=== PATIENT | female | born 1980 | race Two or more races ===

== ENCOUNTER → 2020-07-16 | Outpatient (CLI) | payer OTHER ==
[2020-07-16 12:04] LABS: Basophils # (auto) 0.1 10 ^3/uL (0-0.2); Basophils % (auto) 1.3 % (0.0-2.0); Eosinophils # (auto) 0.2 10 ^3/uL (0-0.8); Eosinophils % (auto) 4.9 % (0.0-7.0); Hematocrit 33.7 % (36.0-46.0); Hemoglobin 11.1 g/dL (12.2-16.2); Lymphocytes # (auto) 1.8 10 ^3/uL (0.4-5.4); Lymphocytes % (auto) 37.3 % (10.0-50.0); Mean Corpuscular Hemoglobin 29.4 pg (28.0-32.0); Mean Corpuscular Volume 89.1 fL (80.0-100.0); Monocytes # (auto) 0.5 10 ^3/uL (0-1.3); Monocytes % (auto) 11.3 % (0.0-12.0); Neutrophils # (auto) 2.1 10 ^3/uL (1.6-8.6); Neutrophils % (auto) 45.2 % (37.0-80.0); Nucleated Red Blood Cells % 0.1 %; Platelet Count (auto) 366 10^3/uL (140-450); Red Blood Cells 3.78 10^6/uL (4.0-5.20); Red Cell Distribution Width 15.7 % (11.8-14.3); White Blood Cell 4.7 10^3/uL (4.4-10.8)
[2020-07-16 13:22] LABS: BUN/Creatinine Ratio 6.4; Calcium 9.1 mg/dL (8.5-10.1); Potassium 4.3 mmol/L (3.5-5.1)
[2020-07-16 13:25] LABS: Bilirubin, Total 0.3 mg/dL (0.2-1.0); Total Protein 7.6 g/dL (6.4-8.2)
== END | disposition home or self-care (01) ==
LOC: LAB 11:48
PROVIDERS: ATTEND Psychiatry & Neurology Neurology
DX: R56.9 Unspecified convulsions (principal)
CPT/HCPCS: 36415; 80053; 85025

== ENCOUNTER → 2020-07-16 | Outpatient (CLI) | payer OTHER | END | disposition home or self-care (01) | LOC: XYW 10:44 | PROVIDERS: ATTEND Obstetrics & Gynecology | DX: Z87.898 Personal history of other specified conditions (principal) | CPT/HCPCS: 70553; A9579 ==

== ENCOUNTER 2020-10-11 17:02 | Emergency (ER) | payer OTHER ==
[~2020-10-11] VITALS: Ht 175.3 cm; Wt 89.4 kg
[2020-10-11 17:56] LABS: Basophils # (auto) 0.1 10 ^3/uL (0-0.2); Basophils % (auto) 1.1 % (0.0-2.0); Eosinophils # (auto) 0.2 10 ^3/uL (0-0.8); Eosinophils % (auto) 3.6 % (0.0-7.0); Hematocrit 35.4 % (36.0-46.0); Hemoglobin 11.8 g/dL (12.2-16.2); Lymphocytes # (auto) 2.4 10 ^3/uL (0.4-5.4); Lymphocytes % (auto) 34.4 % (10.0-50.0); Mean Corpuscular Hgb Conc. 33.3 g/dL (32.0-36.0); Mean Corpuscular Volume 90.1 fL (80.0-100.0); Monocytes # (auto) 0.7 10 ^3/uL (0-1.3); Monocytes % (auto) 9.6 % (0.0-12.0); Neutrophils # (auto) 3.6 10 ^3/uL (1.6-8.6); Neutrophils % (auto) 51.3 % (37.0-80.0); Nucleated Red Blood Cells % 0.1 %; Platelet Count (auto) 392 10^3/uL (140-450); Red Blood Cells 3.93 10^6/uL (4.0-5.20); Red Cell Distribution Width 14.6 % (11.8-14.3)
[2020-10-11 18:18] LABS: Albumin 4.1 g/dL (3.4-5.0); Anion Gap 7 (5-15); Blood Urea Nitrogen 5 mg/dL (7-18); Calcium 8.9 mg/dL (8.5-10.1); Carbon Dioxide 23 mmol/L (21-32); Chloride 110 mmol/L (98-107); Glucose 83 mg/dL (74-106); Magnesium 2.4 mg/dL (1.6-2.6); Potassium 3.6 mmol/L (3.5-5.1); Sodium 140 mmol/L (136-145)
[2020-10-11 18:24] LABS: Alanine Aminotransferase 16 U/L (13-56); Alkaline Phosphatase 57 U/L (45-117); Aspartate Aminotransferase 15 U/L (15-37); BUN/Creatinine Ratio 5.1; Bilirubin, Total 0.3 mg/dL (0.2-1.0); GFR African American 80 mL/min; GFR Non-African American 66 mL/min; Total Protein 7.8 g/dL (6.4-8.2)
[2020-10-11 18:42] LABS: Urine Bacteria NONE SEEN /hpf (None Seen); Urine Blood Negative /uL (Negative); Urine WBC 1 /hpf (0 - 5)
[2020-10-11 18:44] LABS: INR 0.97 (0.9-1.15); Partial Thromboplastin Time 24.8 sec (23.0-31.2)
[2020-10-11 21:39] VITALS: BP 112/57
== END 2020-10-11 22:55 | disposition home or self-care (01) ==
LOC: ER 17:02
DX: I47.9 Paroxysmal tachycardia, unspecified (principal); R07.9 Chest pain, unspecified; Z32.02 Encounter for pregnancy test, result negative; Z88.0 Allergy status to penicillin
CPT/HCPCS: 36415; 71045; 80053; 81001; 81025; 83735; 83880; 84443; 84484; 85025; 85379; 85610; 85730; 93005

== ENCOUNTER → 2023-07-14 | Outpatient (CLI) | payer BC | END | disposition home or self-care (01) | LOC: Rad HDHVI 15:58 | PROVIDERS: ATTEND Internal Medicine Cardiovascular Disease | DX: R07.89 Other chest pain (principal); R06.02 Shortness of breath | CPT/HCPCS: 93306 ==

== ENCOUNTER → 2023-07-20 | Outpatient (CLI) | payer BC ==
[~2023-07-20] VITALS: Ht 177.8 cm; Wt 95.3 kg
== END | disposition home or self-care (01) ==
LOC: Rad HDHVI 14:30
PROVIDERS: ATTEND Internal Medicine Cardiovascular Disease
DX: R07.9 Chest pain, unspecified (principal); R06.02 Shortness of breath; R42 Dizziness and giddiness; E78.00 Pure hypercholesterolemia, unspecified; F17.210 Nicotine dependence, cigarettes, uncomplicated; Z82.49 Family history of ischemic heart disease and other diseases of the circulatory system
CPT/HCPCS: 78452; 93017; 96374; A9500

== ENCOUNTER 2023-08-19 07:00 | Day surgery (SDC) | payer BC ==
[2023-08-17 10:50] LABS: Eosinophils # (auto) 0.2 10 ^3/uL (0-0.8); Hemoglobin 11.2 g/dL (12.2-16.2); Monocytes # (auto) 0.5 10 ^3/uL (0-1.3)
[2023-08-17 10:53] LABS: Basophils # (auto) 0.1 10 ^3/uL (0-0.2); Basophils % (auto) 1.2 % (0.0-2.0); Eosinophils % (auto) 3.3 % (0.0-7.0); Lymphocytes # (auto) 2.8 10 ^3/uL (0.4-5.4); Lymphocytes % (auto) 44.8 % (10.0-50.0); Mean Corpuscular Hemoglobin 27.3 pg (28.0-32.0); Mean Corpuscular Volume 85.3 fL (80.0-100.0); Monocytes % (auto) 8.2 % (0.0-12.0); Neutrophils # (auto) 2.7 10 ^3/uL (1.6-8.6); Neutrophils % (auto) 42.5 % (37.0-80.0); Nucleated Red Blood Cells % 0.1 %; Red Cell Distribution Width 16.7 % (11.8-14.3); White Blood Cell 6.3 10^3/uL (4.4-10.8)
[2023-08-17 11:09] LABS: INR 0.97 (0.9-1.15); Partial Thromboplastin Time 28.5 SEC (24.5-34.5); Prothrombin Time 10.2 sec (9.3-11.8)
[2023-08-17 11:28] LABS: Anion Gap 6 (5-15); Carbon Dioxide 25 mmol/L (20-30); Chloride 108 mmol/L (98-107); Potassium 3.9 mmol/L (3.5-5.1); Sodium 139 mmol/L (136-145)
[2023-08-17 11:29] LABS: Calcium 9.7 mg/dL (8.5-10.1)
[2023-08-17 11:34] LABS: Glucose 84 mg/dL (74-106)
[2023-08-17 11:57] LABS: Blood Urea Nitrogen < 5 mg/dL (9-23)
[~2023-08-19] VITALS: Ht 177.8 cm; Wt 96.6 kg
[2023-08-19] VITALS (8 sets, daily range): BP systolic 95–121; BP diastolic 58–73; PULSE 61–76; RESP 12–22; O2SAT 90–100
[~2023-08-19 07:00] MED LIST: CLOP75TA28 PO; GABA400C PO; LAMO150T2 PO; LORA-1121 PO
[2023-08-19] MEDS ORDERED: IODIXANOL 320MG/ML 100ML BTL IV ONE (08:16)
[2023-08-19] MEDS ORDERED: LIDOCAINE 2%HCL (LOCAL ANESTH.) INJ 20ML MDV ONE (08:16)
[2023-08-19] MEDS ORDERED: IOHEXOL 350 MG/ML 100ML IJ ONE ×2 (08:17→09:31)
[2023-08-19] MEDS ORDERED: ANGIOMAX 250 MG VIAL IV ONE (08:34)
[2023-08-19] MEDS ORDERED: fentaNYL CITRATE 100 MCG/2 ML VL ONE (08:34)
[2023-08-19] MEDS ORDERED: SODIUM CHL 0.9% 0 ML ONE (08:34)
[2023-08-19] MEDS ORDERED: HEPARIN SODIUM (PORCINE) 5000 UNITS/ML 1ML VIAL ONE (08:34)
[2023-08-19] MEDS ORDERED: VERAPAMIL 2.5MG/ML INJ 2ML VIAL IV ONE (08:34)
[2023-08-19] MEDS ORDERED: MIDAZOLAM HCL 2MG/2ML 2ml VIAL (1mg/ml) ONE (08:34)
== END 2023-08-19 12:10 | disposition home or self-care (01) ==
LOC: CATH 07:00
PROVIDERS: ATTEND Internal Medicine Cardiovascular Disease
DX: R06.02 Shortness of breath (principal); R94.39 Abnormal result of other cardiovascular function study; I10 Essential (primary) hypertension; Z88.0 Allergy status to penicillin; Z87.891 Personal history of nicotine dependence; Z79.01 Long term (current) use of anticoagulants; Z79.899 Other long term (current) drug therapy; Z98.890 Other specified postprocedural states
CPT/HCPCS: 36415; 80048; 84702; 85025; 85610; 85730; 93458; C1887; C1894; J1644; J2250; J3010; Q9967; 99152

== ENCOUNTER 2024-08-08 14:37 | Inpatient (IN) | payer BC ==
[~2024-08-08] VITALS: Ht 177.8 cm; Wt 105.0 kg
--- NOTE | 2024-08-08 15:29 | ED.PDOC ---
History of Present Illness HPI Comments 43 year old female presents to the ED with a chief complaint of LT sided numbness onset today (08/08/24). Patient states she began experiencing LT sided headache, LT sided facial numbness radiates to LT shoulder and LT arm with a tingling sensation noted as well as palpitations. Upon assessment BS 139, BP 10 4/49. PMHx anxiety, anemia, seizure. Denies chest pain, shortness of breath, blurry vision, nausea, vomiting, diarrhea, abdominal pain, fevers, chills. No other symptoms or modifying factors present at this time. Chief Complaint: Left Sided Weakness Time Seen by MD: 15:08 Primary Care Provider: LOUANN Buchanan Notes: Medications, Allergies Allergies: Coded Allergies: Penicillins (Verified Allergy, Unknown, 10/11/20) Home Meds Reported Medications Lorazepam (ATIVAN TABLET) 0.5 Mg Tb, 1 TAB PO DAILY PRN for ANXIETY 08/17/23 Clopidogrel Bisulfate (Plavix) 75 Mg Tab, 1 TAB PO DAILY, #90 TAB 1 Refill 08/17/23 Gabapentin (Neurontin) 400 Mg Cap, 1 CAP PO BID 08/17/23 Lamotrigine (Lamictal) 150 Mg Tab, 2 TAB PO BID for seizure, #60 TAB 1 Refill 08/17/23 Information Source: Patient Mode of Arrival: Ambulatory Severity: Moderate Timing: Hours Duration: Since onset Prehospital treatment: None Past Medical History PAST MEDICAL HISTORY: Anemia, Anxiety, Seizures Surgical History: Denies all surgeries 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 History Social History Smoker: Non-Smoker Alcohol: Denies ETOH Use Drugs: Denies Drug Use Lives In: Home Constitutional: denies: chills, diaphoresis, fatigue, fever, malaise, sweats, weakness, others EENTM: denies: blurred vision, double vision, ear bleeding, ear discharge, ear drainage, ear pain, ear ringing, eye pain, eye redness, hearing loss, mouth pain, mouth swelling, nasal discharge, nose bleeding, nose congestion, nose pain, photophobia, tearing, throat pain, throat swelling, voice changes, others Respiratory: denies: cough, hemoptysis, orthopnea, SOB at rest, shortness of breath, SOB with excertion, stridor, wheezing, others Cardiovascular: reports: palpitations; denies: chest pain, dizzy spells, diaphoresis, Dyspnea on exertion, edema, irregular heart beat, left arm pain, lightheadedness, PND, syncope, others Gastrointestinal: denies: abdomen distended, abdominal pain, blood streaked bowels, constipated, diarrhea, dysphagia, difficulty swallowing, hematemesis, melena, nausea, poor appetite, poor fluid intake, rectal bleeding, rectal pain, vomiting, others Genitourinary: denies: abnormal vagina bleeding, burning, dyspareunia, dysuria, flank pain, frequency, hematuria, incontinence, pain, , vagina discharge, urgency, others Neurological: reports: headache, left sided numbness; denies: dizziness, fainting, left sided weakness, numbness, paresthesia, pre-existing deficit, right sided numbness, right sided weakness, seizure, speech problems, tingling, tremors, weakness, others Musculoskeletal: reports: others ( LT shoulder pain, LT arm pain); denies: back pain, gout, joint pain, joint swelling, muscle pain, muscle stiffness, neck pain Integumetry: denies: bruises, change in color, change in hair/nails, dryness, laceration, lesions, lumps, rash, wounds, others Allergic/Immunocompromised: denies: Difficulty Healing, Frequent Infections, Hives, Itching, others Hematologic/Lymphatic: denies: anemia, blood clots, easy bleeding, easy bruising, swollen glands, others Endocrine: denies: excessive hunger, excessive sweating, excessive thirst, excessive urination, flushing, intolerance to cold, intolerance to heat, unexplained weight gain, unexplained weight loss, others Psychiatric: denies: anxiety, bipolar disorder, depression, hopeless, panic disorder, schizophrenia, sleepless, suicidal, others All Other Systems: Reviewed and Negative Physical Exam General Appearance: No Apparent Distress, Normal HEENT: Normal ENT Inspection, Pharynx Normal, TMs Normal Neck: Full Range of Motion, Non-Tender, Normal, Normal Inspection Respiratory: Chest Non-Tender, Lungs Clear, No Accessory Muscle Use, No Respiratory Distress, Normal Breath Sounds Cardiovascular: No Edema, No JVD, No Murmur, No Gallop, Normal Peripheral Pulses, Regular Rate/Rhythm Breast Exam: Deferred Gastrointestinal: No Organomegaly, Non Tender, No Pulsatile Mass, Normal Bowel Sounds, Soft Genitalia: Deferred Pelvic: Deferred Rectal: Deferred Extremities: No calf tenderness, Normal capillary refill, Normal inspection, Normal range of motion, Non-tender, No pedal edema Musculoskeletal : Apperance: Normal Neurologic: Alert, 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 Was a procedure done?: No Differential Dx Considerations may include: CVA, ACS, TIA, viral syndrome, atypical migraine, X-Ray, Labs, Meds, VS Vital Signs Date Time Temp Pulse Resp B/P (MAP) Pulse Ox O2 Delivery O2 Flow Rate FiO2 08/08/24 15:32 81 08/08/24 15:16 98.5 81 16 104/49 (67) 99 Lab Test 08/08/24 16:01 08/08/24 15:06 08/08/24 15:02 Range/Units Urine Color Pending Urine Clarity Pending Urine pH Pending Urine Specific [place] Pending Urine Protein Pending Urine Ketones Pending Urine Blood Pending Urine Nitrite Pending Urine Bilirubin Pending Urine Urobilinogen Pending Urine Leukocyte Esterase Pending Urine RBC Pending Urine Microscopic WBC Pending Urine Squamous Epithelial Cells Pending Urine Bacteria Pending Urine Glucose Pending POC Glucose 139 H 70-106 mg/dl White Blood Count 6.1 4.4-10.8 10^3/uL Red Blood Count 4.07 4.0-5.20 10^6/uL Hemoglobin 12.7 12.2-16.2 g/dL Hematocrit 38.9 36.0-46.0 % Mean Corpuscular Volume 95.5 80.0-100.0 fL Mean Corpuscular Hemoglobin 31.1 28.0-32.0 pg Mean Corpuscular Hemoglobin Concent 32.6 32.0-36.0 g/dL Red Cell Distribution Width 14.0 11.8-14.3 % Platelet Count 430 140-450 10^3/uL Mean Platelet Volume 7.1 6.9-10.8 fL Neutrophils (%) (Auto) 65.2 37.0-80.0 % Lymphocytes (%) (Auto) 28.2 10.0-50.0 % Monocytes (%) (Auto) 4.1 0.0-12.0 % Eosinophils (%) (Auto) 2.1 0.0-7.0 % Basophils (%) (Auto) 0.4 0.0-2.0 % Neutrophils # (Auto) 4.0 1.6-8.6 10 ^3/uL Lymphocytes # (Auto) 1.7 0.4-5.4 10 ^3/uL Monocytes # (Auto) 0.3 0-1.3 10 ^3/uL Eosinophils # (Auto) 0.1 0-0.8 10 ^3/uL Basophils # (Auto) 0 0-0.2 10 ^3/uL Nucleated Red Blood Cells 0.2 % Sodium Level 140 136-145 mmol/L Potassium Level 3.7 3.5-5.1 mmol/L Chloride Level 106 98-107 mmol/L Carbon Dioxide Level 25 20-31 mmol/L Anion Gap 9 5-15 Blood Urea Nitrogen < 5 L 9-23 mg/dL Creatinine 0.98 0.550-1.02 mg/dL Glomerular Filtration Rate Calc 73 >90 mL/min BUN/Creatinine Ratio 5.1 L 10.0-20.0 Serum Glucose 132 H 74-106 mg/dL Calcium Level 9.6 8.7-10.4 mg/dL Troponin I High Sensitivity < 3 L </=34 ng/L B-Type Natriuretic Peptide 46.11 0-100 pg/mL [place] [id number] Ph: [phone] DIAGNOSTIC IMAGING Diagnostic Imaging Report : [id number] Signed PATIENT: DAIN CHAVEZCCT: [id number] UNIT: [id number] : 1980 LOC: ER ROOM / BED: / AGE / SEX: 43 / F ADM STATUS: REG ER SERVICE 1510 ORDERING PHYSICIAN: LANIE ESPOSITO MD PROCEDURE(s): HWOCT - HEAD WITHOUT CONTRAST REASON: left sided numbness ORDER NUMBER(s): [id number], ACCESSION NUMBER(s): [id number] EXAM: CT HEAD WITHOUT CONTRAST INDICATION: left sided numbness TECHNIQUE: CT of the head without intravenous contrast. Radiation Dose Information: CT Dose: CTDI volume is 59.08 mGy. Dose-length product is 1045.97 mGy*cm The dose indicators for CT are the volume Computed Tomography (CT) Dose Index (CTDIvol) and the Dose Length Product (DLP), and are measured in units of mGy and mGy-cm, respectively. These indicators are not patient dose, but values generated from the CT scanner acquisition factors. The report includes radiation exposure data for exposures received during this examination. COMPARISON: None FINDINGS: There is no evidence of acute intracranial hemorrhage, extra-axial collection, mass effect, midline shift, herniation or hydrocephalus. The ventricles, sulci and cisterns are age appropriate. The cuellar-white differentiation is intact. Patchy periventricular and subcortical white matter hypoattenuation is nonspecific but may be related to small vessel ischemic disease. The visualized paranasal sinuses and mastoid air cells are clear. The surrounding soft tissues and osseous structures are unremarkable. IMPRESSION: 1. No acute intracranial hemorrhage 2. No CT findings of territorial ischemia. HS:Y ATED BY: GUERITA DE OLIVEIRA Jr., DO DICTATED DATE/TIME: 08/08/24 154 SIGNED BY: GUERITA DE OLIVEIRA Jr., SIGNED DATE/TIME: 08/08/24 154 CC: [place] [id number] Ph: [phone] DIAGNOSTIC IMAGING Diagnostic Imaging Report : [id number] Signed PATIENT: DAIN CHAVEZCCT: [id number] UNIT: [id number] : 1980 LOC: ER ROOM / BED: / AGE / SEX: 43 / F ADM STATUS: REG ER SERVICE 1510 ORDERING PHYSICIAN: LANIE ESPOSITO MD PROCEDURE(s): CXRP - CHEST PORTABLE REASON: left sided numbness ORDER NUMBER(s): [id number], ACCESSION NUMBER(s): [id number] CHEST PORTABLE, HISTORY: left sided numbness COMPARISON: CHEST PORTABLE on DOS: 10/11/20 CHEST PORTABLE on DOS: 10/11/20 TECHNICAL DATA: 1 view of the chest was obtained. FINDINGS: Lines and tubes: None Cardiomediastinal silhouette: normal Pulmonary vasculature: normal Lung expansion: normal Lung airspace: normal Lung interstitium: normal Pleura: normal Pneumothorax: no Bones: Unremarkable Other: no IMPRESSION: No acute intrathoracic abnormality. ATED BY: BEHZAD PATRICK MD DICTATED DATE/TIME: 08/08/241551 SIGNED BY: BEHZAD PATRICK MD SIGNED DATE/TIME: 08/08/241551 CC: Time of 1ST Reevaluation: 15:38 Reevaluation 1ST: Unchanged Patient Education/Counseling: Diagnosis, Treatment, Prognosis Family Education/Counseling: No Family Present Additional Information The following tests were ordered, and results were reviewed by me: BNP, BMP, CBC, TROP -x3, UA, XY CHEST, CT HEAD WITHOUT CONTRAST I reviewed and agreed with the following test results read by other providers: XY CHEST, CT HEAD WITHOUT CONTRAST I discussed treatment and results with medical personnel and: patient Departure 1 Departure Time of Disposition: 16:33 (Patient with left-sided paresthesias. CT scan initially is negative lab work is benign. We will admit patient for further workup and expert neuro consultation.) Impression: Primary Impression: Numbness and tingling of left side of face Additional Impression: Arm paresthesia, left Disposition: 09 ADMITTED INPATIENT Admit to: Med Surg Condition: Serious Critical Care Note Critical Care Time?: Yes Critical care comment: Paresthesias and concern for CVA Authorized and Performed by: Lanie Esposito MD Total critical care time: Approximately 38 minutes Due to a high probability of clinically significant, life threatening deterioration, the patient required my highest level of preparedness to intervene emergently and I personally spent this critical care time directly and personally managing the patient. This critical care time included obtaining a history; examining the patient; pulse oximetry; ordering and review of studies; arranging urgent treatment with development of a management plan; evaluation of patient's response to treatment; frequent reassessment; and, discussions with other providers. This critical care time was performed to assess and manage the high probability of imminent, life-threatening deterioration that could result in multi-organ failure. It was exclusive of separately billable procedures and treating other patients and teaching time. Please see my other sections and the rest of the note for further information on patient assessment and treatment. Stability Stability form required: No I personally scribed for LANIE ESPOSITO MD ([email or web address]) on 08/08/24 at 15:29. Electronically submitted by Ernestina [email or web address]). I personally scribed for [facility] on 08/08/24 at 15:29. Electronically submitted by Ernestina Hebert ([email or web address]). I personally scribed for LANIE ESPOSITO MD ([facility]) on 08/08/24 at 15:33. Electronically submitted by Ernestina Hebert ([email or web address]). I personally scribed for LANIE ESPOSITO MD ([facility]) on 08/08/24 at 15:53. Electronically submitted by Ernestina Hebert ([email or web address]). I personally scribed for LANIE ESP[facility]ITO MD ([facility] on 08/08/24 at 16:20. Electronically submitted by Ernestina Hebert ([email or web address]). LANIE ESPOSITO MD Aug 08, 2024 15:29
[2024-08-08 15:45] LABS: Basophils # (auto) 0 10 ^3/uL (0-0.2); Basophils % (auto) 0.4 % (0.0-2.0); Eosinophils # (auto) 0.1 10 ^3/uL (0-0.8); Eosinophils % (auto) 2.1 % (0.0-7.0); Hematocrit 38.9 % (36.0-46.0); Hemoglobin 12.7 g/dL (12.2-16.2); Lymphocytes # (auto) 1.7 10 ^3/uL (0.4-5.4); Lymphocytes % (auto) 28.2 % (10.0-50.0); Mean Corpuscular Hemoglobin 31.1 pg (28.0-32.0); Mean Corpuscular Hgb Conc. 32.6 g/dL (32.0-36.0); Mean Corpuscular Volume 95.5 fL (80.0-100.0); Monocytes # (auto) 0.3 10 ^3/uL (0-1.3); Monocytes % (auto) 4.1 % (0.0-12.0); Neutrophils % (auto) 65.2 % (37.0-80.0); Nucleated Red Blood Cells % 0.2 %; Platelet Count (auto) 430 10^3/uL (140-450); Red Blood Cells 4.07 10^6/uL (4.0-5.20); White Blood Cell 6.1 10^3/uL (4.4-10.8)
[2024-08-08 15:51] LABS: Chloride 106 mmol/L (98-107); Potassium 3.7 mmol/L (3.5-5.1); Sodium 140 mmol/L (136-145)
--- NOTE | 2024-08-08 15:51 | DVH ---
EXAM: CT HEAD WITHOUT CONTRAST INDICATION: left sided numbness TECHNIQUE: CT of the head without intravenous contrast. Radiation Dose Information: CT Dose: CTDI volume is 59.08 mGy. Dose-length product is 1045.97 mGy*cm The dose indicators for CT are the volume Computed Tomography (CT) Dose Index (CTDIvol) and the Dose Length Product (DLP), and are measured in units of mGy and mGy-cm, respectively. These indicators are not patient dose, but values generated from the CT scanner acquisition factors. The report includes radiation exposure data for exposures received during this examination. COMPARISON: None FINDINGS: There is no evidence of acute intracranial hemorrhage, extra-axial collection, mass effect, midline s hift, herniation or hydrocephalus. The ventricles, sulci and cisterns are age appropriate. The cuellar-white differentiation is intact. Patchy periventricular and subcortical white matter hypoattenuation is nonspecific but may be related to small vessel ischemic disease. The visualized paranasal sinuses and mastoid air cells are clear. The surrounding soft tissues and osseous structures are unremarkable. IMPRESSION: 1. No acute intracranial hemorrhage 2. No CT findings of territorial ischemia. HS:Y
[2024-08-08 15:52] LABS: Anion Gap 9 (5-15); Calcium 9.6 mg/dL (8.7-10.4); Carbon Dioxide 25 mmol/L (20-31)
--- NOTE | 2024-08-08 15:55 | DVH ---
XY CHEST PORTABLE, HISTORY: left sided numbness COMPARISON: CHEST PORTABLE on DOS: 10/11/20 CHEST PORTABLE on DOS: 10/11/20 TECHNICAL DATA: 1 view of the chest was obtained. FINDINGS: Lines and tubes: None Cardiomediastinal silhouette: normal Pulmonary vasculature: normal Lung expansion: normal Lung airspace: normal Lung interstitium: normal Pleura: normal Pneumothorax: no Bones: Unremarkable Other: no IMPRESSION: No acute intrathoracic abnormality.
[2024-08-08 16:07] LABS: BUN/Creatinine Ratio 5.1 (10.0-20.0); Blood Urea Nitrogen < 5 mg/dL (9-23); Glucose 132 mg/dL (74-106)
[2024-08-08 16:10] LABS: Urine Bacteria None Seen /hpf (None Seen)
[2024-08-08 16:26] LABS: Urine Blood Negative /uL (Negative); Urine Clarity Clear (Clear); Urine Color Light-Yellow (Yellow); Urine Protein, UAD Negative (Negative); Urine Specific Gravity 1.006 (1.001-1.035); Urine Squamous Epithelial Cell FEW /hpf (<5); Urine Urobilinogen Normal (Negative); Urine WBC 1 /HPF (0-5)
[2024-08-08] MEDS: GABAPENTIN 400 MG CAP PO SCH (22:00)
[2024-08-08 23:04] LABS: Amphetamine Screen, Urine Neg (NEGATIVE); Barbiturate Scree,Urine Neg (NEGATIVE); Benzodiazephine Screen, Urine Neg (NEGATIVE); Cannabinoid Screen, Urine Neg (NEGATIVE); Cocaine Screen, Urine Neg (NEGATIVE); Opiate Scree,Urine Neg (NEGATIVE); Phencyclidine Screen, Urine Neg (NEGATIVE)
[2024-08-09 00:51] VITALS: BP 132/72; PULSE 81; RESP 18; TEMP 97.7; O2SAT 97
[2024-08-09] MEDS: lamoTRIgine 100 MG TAB PO SCH (01:07)
--- NOTE | 2024-08-09 01:07 | DVHHPRES ---
History of Present Illness Resident Creating Document: UMER DOMINIQUE RESIDENT Reason for Visit: rule out stroke History of Present Illness A 43-year-old female presents to the ED with a chief complaint of left-sided weakness and numbness that began today at approximately 1 PM. She initially experienced left-sided headache and facial numbness, which radiated to the left shoulder and arm with tingling sensations. She continues to experience left- sided numbness and a persistent headache. She denies chest pain, shortness of breath, blurry vision, nausea, vomiting, diarrhea, abdominal pain, fevers, chills, or seizure-like activity. This is the first time she has had these symptoms. Given an ABCD score of 4, she was started on dual antiplatelet therapy (DAPT) with aspirin and clopidogrel. MRI brain and neurology consultation were ordered for further evaluation. Past Medical History Anxiety Seizures Surgical History Denies all surgeries Medications Gabapentin 400 mg capsule PO BID Lamotrigine 150 mg tablet PO BID Allergies Penicillins Social History Smoker: Non-smoker Alcohol: Denies alcohol use Drugs: Denies drug use Lives at home Review of Systems Constitutional: No: Fever, Chills, Sweats, Weakness, Malaise, Other Eyes: No: Pain, Vision change, Conjunctivae inflammation, Eyelid inflammation, Other, Redness ENT: No: Ear pain, Ear discharge, Nose pain, Nose discharge, Nose congestion, Mouth pain, Mouth swelling, Throat pain, Throat swelling, Other Respiratory: No: Cough, Dry, Shortness of breath, SOB with excertion, Wheezing, Hemoptysis, Pleuritic Pain, Sputum, Wheezing, Other Cardiovascular: No: Chest Pain, Palpitations, Orthopnea, Paroxysmal Noc. Dyspnea, Edema, Lt Headedness, Other Gastrointestinal: No: Nausea, Vomiting, Abdominal Pain, Diarrhea, Constipation, Melena, Hematochezia, Other Genitourinary: No Dysuria, No Frequency, No Incontinence, No Hematuria, No Retention, No Other Musculoskeletal: No: other, neck pain, shoulder pain, arm pain, back pain, hand pain, leg pain, foot pain Skin: No: Rash, Lesions, Jaundice, Bruising, Other Neurological: Weakness, Numbness; No: Incoordination, Change in speech, Confusion, Seizures, Other Allergies: Coded Allergies: Penicillins (Verified Allergy, Unknown, 10/11/20) Medications Current Medications Medications Dose Ordered Sig/Jennifer Route Start Time Stop Time Status Last Admin Dose Admin Lamotrigine 150 mg BID PO 08/08/24 22:00 Gabapentin 400 mg BID PO 08/08/24 22:00 Exam Vital Signs Vital Signs Date Time Temp Pulse Resp B/P (MAP) Pulse Ox O2 Delivery O2 Flow Rate FiO2 08/08/24 18:39 97.8 60 18 114/69 (84) 97.8 08/08/24 15:16 99 Exam General: Well-appearing, no acute distress. HEENT: Normocephalic, atraumatic, no signs of trauma. Neck: Supple, no lymphadenopathy. Cardiac: Regular rate and rhythm, no murmurs, rubs, or gallops. Pulmonary: Clear to auscultation bilaterally, no rales, rhonchi, or wheezes. Abdomen: Soft, non-tender, non-distended, normoactive bowel sounds. Extremities: No edema, no deformities. Neurologic: Mental Status: Alert and oriented x3 Cranial Nerves: II-XII intact Motor: 3/5 weakness in the upper left extremity + 5/5 in the other ones Sensory: Mild decreased sensation on the left side Reflexes: 2+ throughout Coordination: Intact Gait: Normal Labs/Xrays Labs Test 08/08/24 17:39 08/08/24 16:01 08/08/24 15:06 08/08/24 15:02 Range/Units Troponin I High Sensitivity < 3 L </=34 ng/L Thyroid Stimulating Hormone (TSH) 0.75 0.55-4.78 uIU/mL Urine Color Light-yellow Yellow Urine Clarity Clear Clear Urine pH 7.0 5.0-9.0 Urine Specific [place] 1.006 1.001-1.035 Urine Protein Negative Negative Urine Ketones Negative Negative Urine Blood Negative Negative /uL Urine Nitrite Negative Negative Urine Bilirubin Negative Negative Urine Urobilinogen Normal Negative mg/dL Urine Leukocyte Esterase Negative Negative /uL Urine RBC <1 0 - 4 /hpf Urine Microscopic WBC 1 0-5 /HPF Urine Squamous Epithelial Cells Few <5 /hpf Urine Bacteria None seen None Seen /hpf Urine Glucose Normal Normal mg/dL Urine Opiates Screen Neg NEGATIVE Urine Fentanyl Screen Neg NEGATIVE Urine Barbiturates Screen Neg NEGATIVE Urine Phencyclidine Screen Neg NEGATIVE Urine Amphetamines Screen Neg NEGATIVE Urine Benzodiazepines Screen Neg NEGATIVE Urine Cocaine Screen Neg NEGATIVE Urine Cannabinoids Screen Neg NEGATIVE POC Glucose 139 H 70-106 mg/dl White Blood Count 6.1 4.4-10.8 10^3/uL Red Blood Count 4.07 4.0-5.20 10^6/uL Hemoglobin 12.7 12.2-16.2 g/dL Hematocrit 38.9 36.0-46.0 % Mean Corpuscular Volume 95.5 80.0-100.0 fL Mean Corpuscular Hemoglobin 31.1 28.0-32.0 pg Mean Corpuscular Hemoglobin Concent 32.6 32.0-36.0 g/dL Red Cell Distribution Width 14.0 11.8-14.3 % Platelet Count 430 140-450 10^3/uL Mean Platelet Volume 7.1 6.9-10.8 fL Neutrophils (%) (Auto) 65.2 37.0-80.0 % Lymphocytes (%) (Auto) 28.2 10.0-50.0 % Monocytes (%) (Auto) 4.1 0.0-12.0 % Eosinophils (%) (Auto) 2.1 0.0-7.0 % Basophils (%) (Auto) 0.4 0.0-2.0 % Neutrophils # (Auto) 4.0 1.6-8.6 10 ^3/uL Lymphocytes # (Auto) 1.7 0.4-5.4 10 ^3/uL Monocytes # (Auto) 0.3 0-1.3 10 ^3/uL Eosinophils # (Auto) 0.1 0-0.8 10 ^3/uL Basophils # (Auto) 0 0-0.2 10 ^3/uL Nucleated Red Blood Cells 0.2 % Sodium Level 140 136-145 mmol/L Potassium Level 3.7 3.5-5.1 mmol/L Chloride Level 106 98-107 mmol/L Carbon Dioxide Level 25 20-31 mmol/L Anion Gap 9 5-15 Blood Urea Nitrogen < 5 L 9-23 mg/dL Creatinine 0.98 0.550-1.02 mg/dL Glomerular Filtration Rate Calc 73 >90 mL/min BUN/Creatinine Ratio 5.1 L 10.0-20.0 Serum Glucose 132 H 74-106 mg/dL Hemoglobin A1c 5.1 <5.7 % A1C Calcium Level 9.6 8.7-10.4 mg/dL B-Type Natriuretic Peptide 46.11 0-100 pg/mL Assessment/Plan Assessment/Plan Imaging CT Head (08/08/24) - No Contrast No evidence of acute intracranial hemorrhage, extra-axial collection, mass effect, midline shift, herniation, or hydrocephalus. Age-appropriate ventricles, sulci, and cisterns. Patchy periventricular and subcortical white matter hypodensities, likely related to small vessel ischemic disease. No CT findings of territorial ischemia. Assessment and Plan 43F with PMHx of anxiety, anemia, and seizures presenting with acute left-sided weakness and numbness, now improving, with persistent headache. Given no acute hemorrhage on CT and an ABCD score of 4, likely transient ischemic attack (TIA). #TIA vs Stroke MRI brain ordered Neurology consult placed Dual antiplatelet therapy started: Aspirin + Clopidogrel # Small Vessel Ischemic Disease Noted on CT; follow-up based on MRI findings # Headache Likely secondary to TIA vs tension-type vs migraines Tylenol #Seizure History No seizure-like activity Continue current antiseizure medications #Hyperlipidemia Atorvastatin 20 mg Case discussed with Dr Worrell Plan discussed with: Patient, Other My Orders Orders - UMER DOMINIQUE RESIDENT Procedure Category Date Status Time Admit ADMIT 08/08/24 Transmitted 21:55 Regular Diet DIET 08/09/24 Transmitted Breakfast Lamotrigine Tablet PHA 08/08/24 In Process (Lamictal Tablet) 22:00 Gabapentin Capsule PHA 08/08/24 In Process (Neurontin Capsule) 22:00 * Neurology Consult CONS 08/08/24 Transmitted 21:55 Lipid Panel LAB 08/08/24 In Process 23:53 Brain Head Wo Contrast MRI 08/09/24 Logged 00:00 Date of Service: Aug 09, 2024 Billing Provider: BRANDY WORRELL MD Common Visit Codes: [id number] INP/OBS CARE (HIGH) UMER DOMINIQUE RESIDENT Aug 09, 2024 01:07 BRANDY WORRELL MD Aug 09, 2024 14:45
[2024-08-09] MEDS: ASPirin 325 MG TAB PO ONE (01:08)
[2024-08-09] MEDS: CLOPIDOGREL BISULFATE 75 MG TAB PO ONE (01:09)
[2024-08-09 01:41] LABS: Triglycerides 119 mg/dL (< 150)
[2024-08-09 01:42] LABS: LDL Cholesterol 137 mg/dL (< 100)
[2024-08-09 01:43] LABS: HDL Cholesterol 53 mg/dL (40-59)
[2024-08-09 01:59] LABS: Cholesterol 201 mg/dL (< 200)
[2024-08-09] MEDS ORDERED: ACETAMINOPHEN 325 MG TAB PO PRN (03:00)
[2024-08-09] MEDS: KETOROLAC TROMETH 30 MG/ML 1ML VIAL IV PRN (06:36)
[2024-08-09 06:57] LABS: Basophils # (auto) 0.1 10 ^3/uL (0-0.2); Eosinophils # (auto) 0.3 10 ^3/uL (0-0.8); Eosinophils % (auto) 3.2 % (0.0-7.0); Hemoglobin 13.6 g/dL (12.2-16.2); Lymphocytes # (auto) 2.8 10 ^3/uL (0.4-5.4); Lymphocytes % (auto) 32.7 % (10.0-50.0); Mean Corpuscular Hemoglobin 31.6 pg (28.0-32.0); Mean Corpuscular Hgb Conc. 33.1 g/dL (32.0-36.0); Mean Corpuscular Volume 95.4 fL (80.0-100.0); Monocytes # (auto) 0.7 10 ^3/uL (0-1.3); Monocytes % (auto) 7.6 % (0.0-12.0); Neutrophils # (auto) 4.7 10 ^3/uL (1.6-8.6); Neutrophils % (auto) 55.5 % (37.0-80.0); Nucleated Red Blood Cells % 0.1 %; Platelet Count (auto) 440 10^3/uL (140-450); Red Blood Cells 4.29 10^6/uL (4.0-5.20); Red Cell Distribution Width 14.6 % (11.8-14.3); White Blood Cell 8.6 10^3/uL (4.4-10.8)
[2024-08-09 07:21] LABS: Alanine Aminotransferase 15 U/L (7-40); Alkaline Phosphatase 62 U/L (46-116); Anion Gap 12 (5-15); Calcium 9.8 mg/dL (8.7-10.4); Carbon Dioxide 23 mmol/L (20-31); Chloride 105 mmol/L (98-107); Potassium 3.9 mmol/L (3.5-5.1); Sodium 140 mmol/L (136-145)
[2024-08-09 07:22] LABS: Aspartate Aminotransferase 20 U/L (13-40); Total Protein 7.7 g/dL (5.7-8.2)
[2024-08-09 07:27] LABS: Albumin 4.9 g/dL (3.2-4.8); BUN/Creatinine Ratio 5.6 (10.0-20.0); Bilirubin, Total 0.2 mg/dL (0.2-1.0); Blood Urea Nitrogen < 5 mg/dL (9-23); Glucose 68 mg/dL (74-106)
--- NOTE | 2024-08-09 08:38 | DVH ---
CLINICAL INDICATION: 43 years old, Female; rule out stroke. Indication for recent CT exam was left-s ided numbness. COMPARISON: BRAIN HEAD WO W CONTRAST on DOS: 07/16/20 TECHNIQUE: Multisequence multiplanar MRI images of the brain were obtained without contrast. FINDINGS: No acute infarct or hemorrhage. No mass or midline shift. Ventricles and sulci are within normal limits. Basal cisterns are patent. There is a partially empty sella. Cerebellum, brainstem, an d midline structures are within normal limits. Paranasal sinuses are clear. In the orbits, there is s light excess CSF fluid in the optic nerve sheaths bilaterally with tortuosity of the optic nerves, ma y be seen with papilledema in the appropriate clinical setting. IMPRESSION: 1. No evidence of acute intracranial abnormality. No acute infarct. 2. Slight excess CSF fluid in the optic nerve sheaths bilaterally with tortuosity of the optic nerves , may be seen with papilledema in the appropriate clinical setting. 3. Partially empty sella.
[2024-08-09 08:55] VITALS: BP 117/68; PULSE 80; RESP 14; TEMP 98.2; O2SAT 97
--- NOTE | 2024-08-09 09:13 | DVH ---
Carotid Duplex Date: 08/09/2024 08:08 AM Clinical History: TIA Comparison: None Technique: Duplex Doppler evaluation of the extracranial carotid and vertebral arteries including color Doppler and spectral/pulsed waveform analysis was performed. Findings: Velocities and ratios within normal IMPRESSION: No hemodynamically significant stenosis noted in the right carotid system. No hemodynamically significant stenosis noted in the left carotid system. Reference: Radiology 2003; 229:340-346
[2024-08-09] MEDS: ASPirin 81 mg TAB PO SCH (09:46)
[2024-08-09] MEDS: CLOPIDOGREL BISULFATE 75 MG TAB PO SCH (09:46)
--- NOTE | 2024-08-09 11:00 | DVHINCON2 ---
Date of service: Aug 09, [address] Aguilar Reason for Consultation Rule out CVA, history of seizures History of Present Illness Ms. Abi Price is a 43 years old right-handed female with a history of anxiety, anemia, she came to the [facility] on 08/08/2024 with a chief company of left side numbness. At that time, she was alert and fully oriented, she provided the following history On 08/08/2024, she developed pressure headache in bifrontal head region, with spread to whole head, the headache was constant but improved in the emergency room after she was given pain management. The patient was has headache once a while, and she was a similar headache about 2-3 years ago, she was seen in the [facility] ER and nothing wrong was found after CT brain scan and other tests Along with the headache, she was also had left facial numbness, tingling in the left neck, shoulder and brachium. All the symptoms have resolved in the emergency room She denies associated weakness She developed grand mal seizure in 2009, and the last attack was around . She reports she had episodic event where she was shaking all over body with loss of consciousness, and complete amnesia except for shortness of breath at the beginning, she was on gabapentin 400 mg b.i.d., lamotrigine 150 mg daily In 2020, she developed episode event where she spaces out but without loss of consciousness, the last event was in 2022 Sometimes she smells unpleasant odor and has unpleasant taste without altered mental status CBC, 08/08/2025: Unremarkable CMP, 08/09/2024: Unremarkable HGB A1c, 08/08/2024: 5.1 TG/HDL/LDL/HDL, 08/08/2024: 119/201/137/53 TSH, 08/08/2024: Carotid Doppler, 08/09/2024: No hemodynamically significant stenosis noted in the right carotid system. No hemodynamically significant stenosis noted in the left carotid system. MR head, 08/09/2024: 1. No evidence of acute intracranial abnormality. No acute infarct. 2. Slight excess CSF fluid in the optic nerve sheaths bilaterally with tortuosity of the optic nerves, may be seen with papilledema in the appropriate clinical setting. 3. Partially empty sella. Past Medical History Anxiety, seizure, anemia Past Surgical History Family History Hypertension, prostatic cancer Social History She was a tobacco smoker, she was no history of alcohol or recreational substance abuse Allergies: Coded Allergies: Penicillins (Verified Allergy, Unknown, 10/11/20) Home Meds Reported Medications Lorazepam (ATIVAN TABLET) 0.5 Mg Tb, 1 TAB PO DAILY PRN for ANXIETY 08/17/23 Clopidogrel Bisulfate (Plavix) 75 Mg Tab, 1 TAB PO DAILY, #90 TAB 1 Refill 08/17/23 Gabapentin (Neurontin) 400 Mg Cap, 1 CAP PO BID 08/17/23 Lamotrigine (Lamictal) 150 Mg Tab, 2 TAB PO BID for seizure, #60 TAB 1 Refill 08/17/23 Current Medications Current Medications Medications (Trade) Dose Ordered Sig/Jennifer Route PRN Reason Start Time Stop Time Status Last Admin Lamotrigine (LaMICtal TABLET) 150 mg BID PO 08/08/24 22:00 08/09/24 01:07 Gabapentin (Neurontin Capsule) 400 mg BID PO 08/08/24 22:00 08/09/24 09:46 Atorvastatin Calcium (Lipitor) 20 mg HS PO 08/09/24 22:00 08/09/24 06:59 DC Aspirin 81 mg DAILY PO 08/09/24 10:00 08/09/24 09:46 Clopidogrel Bisulfate (Plavix) 75 mg DAILY PO 08/09/24 10:00 08/09/24 09:46 Acetaminophen (Tylenol Tablet) 650 mg Q4HP PRN PO MODERATE PAIN (4-6 PAIN SCALE) 08/09/24 03:00 Ketorolac Tromethamine (Toradol Injection) 15 mg Q6HPRN PRN IV MODERATE PAIN (4-6 PAIN SCALE) 08/09/24 06:15 08/14/24 06:14 08/09/24 06:36 Atorvastatin Calcium (Lipitor) 80 mg HS PO 08/09/24 22:00 Review of Systems As above, the other systems are negative Vital Signs Vital Signs Date Time Temp Pulse Resp B/P (MAP) Pulse Ox O2 Delivery O2 Flow Rate FiO2 08/09/24 08:55 98.2 80 14 117/68 (84) 97 98.2 08/09/24 00:51 Room Air* 0 21 Physical Exam GENERAL EXAM: General: the patient is well developed and nourished. No acute distress. HEENT: Normocephalic, neck is supple, no carotid bruits. No mass. RESPIRATORY: Normal respiratory effort with symmetrical lung expansion. Lungs clear to auscultation. CARDIOVASCULAR: Regular rate and rhythm with no murmurs. S1, S2. ABDOMEN: Soft, nontender, normal bowel sound NEUROLOGICAL: MENTAL STATUS: Awake and alert. Oriented to person, place, time and general circumstances. Able to give personal history. SPEECH, LANGUAGE, HIGHER CORTICAL FUNCTION: no aphasia or dysathria. CRANIAL NERVES: #2: Intact visual moore to confrontation. The optic discs were sharp. #3,4,6: Pupils are equal, round and reactive. EOMs full and conjugate. No nystagmus. #5: Facial sensation intact in all three divisions bilaterally. Mandibular strength intact. #7: Facial muscles symmetrical and strength intact. #8: Hearing grossly normal to voice. #9,10: Uvula and soft palate rise in the midline. Swallow and voice are normal. #11: Trapezius and sternomastoid strength intact bilaterally. #12: Tongue midline. No fasciculations or atrophy. SENSATION: Sensation to touch and pinprick is normal. MOTOR: Normal tone in the upper and lower extremity. Normal muscle bulk. No fasciculations. No abnormal movements or posturing. Muscle strength of the major groups in the upper extremities is 5/5. Muscle strength of the major groups in the lower extremities is 5/5. REFLEXES: Deep tendon reflexes normal and symmetrical. No pathological reflexes. CEREBELLAR/COORDINATION: Finger to nose and heel to bello are normal bilaterally. GAIT/STATION: deferred. Labs/Diagnostic Data Labs Test 08/09/24 05:48 08/08/24 17:39 08/08/24 16:01 08/08/24 15:06 Range/Units White Blood Count 8.6 # 4.4-10.8 10^3/uL Red Blood Count 4.29 4.0-5.20 10^6/uL Hemoglobin 13.6 12.2-16.2 g/dL Hematocrit 41.0 36.0-46.0 % Mean Corpuscular Volume 95.4 80.0-100.0 fL Mean Corpuscular Hemoglobin 31.6 28.0-32.0 pg Mean Corpuscular Hemoglobin Concent 33.1 32.0-36.0 g/dL Red Cell Distribution Width 14.6 H 11.8-14.3 % Platelet Count 440 140-450 10^3/uL Mean Platelet Volume 7.4 6.9-10.8 fL Neutrophils (%) (Auto) 55.5 37.0-80.0 % Lymphocytes (%) (Auto) 32.7 10.0-50.0 % Monocytes (%) (Auto) 7.6 0.0-12.0 % Eosinophils (%) (Auto) 3.2 0.0-7.0 % Basophils (%) (Auto) 1.0 0.0-2.0 % Neutrophils # (Auto) 4.7 1.6-8.6 10 ^3/uL Lymphocytes # (Auto) 2.8 0.4-5.4 10 ^3/uL Monocytes # (Auto) 0.7 0-1.3 10 ^3/uL Eosinophils # (Auto) 0.3 0-0.8 10 ^3/uL Basophils # (Auto) 0.1 0-0.2 10 ^3/uL Nucleated Red Blood Cells 0.1 % Sodium Level 140 136-145 mmol/L Potassium Level 3.9 3.5-5.1 mmol/L Chloride Level 105 98-107 mmol/L Carbon Dioxide Level 23 20-31 mmol/L Anion Gap 12 5-15 Blood Urea Nitrogen < 5 L 9-23 mg/dL Creatinine 0.90 0.550-1.02 mg/dL Glomerular Filtration Rate Calc 80 >90 mL/min BUN/Creatinine Ratio 5.6 L 10.0-20.0 Serum Glucose 68 L 74-106 mg/dL Calcium Level 9.8 8.7-10.4 mg/dL Total Bilirubin 0.2 0.2-1.0 mg/dL Aspartate Amino Transferase (AST) 20 13-40 U/L Alanine Aminotransferase (ALT) 15 7-40 U/L Alkaline Phosphatase 62 46-116 U/L Total Protein 7.7 5.7-8.2 g/dL Albumin 4.9 H 3.2-4.8 g/dL Troponin I High Sensitivity < 3 L </=34 ng/L Triglycerides Level 119 < 150 mg/dL Cholesterol Level 201 H < 200 mg/dL LDL Cholesterol 137 H < 100 mg/dL HDL Cholesterol 53 40-59 mg/dL Thyroid Stimulating Hormone (TSH) 0.75 0.55-4.78 uIU/mL Urine Color Light-yellow Yellow Urine Clarity Clear Clear Urine pH 7.0 5.0-9.0 Urine Specific [place] 1.006 1.001-1.035 Urine Protein Negative Negative Urine Ketones Negative Negative Urine Blood Negative Negative /uL Urine Nitrite Negative Negative Urine Bilirubin Negative Negative Urine Urobilinogen Normal Negative mg/dL Urine Leukocyte Esterase Negative Negative /uL Urine RBC <1 0 - 4 /hpf Urine Microscopic WBC 1 0-5 /HPF Urine Squamous Epithelial Cells Few <5 /hpf Urine Bacteria None seen None Seen /hpf Urine Glucose Normal Normal mg/dL Urine Opiates Screen Neg NEGATIVE Urine Fentanyl Screen Neg NEGATIVE Urine Barbiturates Screen Neg NEGATIVE Urine Phencyclidine Screen Neg NEGATIVE Urine Amphetamines Screen Neg NEGATIVE Urine Benzodiazepines Screen Neg NEGATIVE Urine Cocaine Screen Neg NEGATIVE Urine Cannabinoids Screen Neg NEGATIVE POC Glucose 139 H 70-106 mg/dl Test 08/08/24 15:02 Range/Units Hemoglobin A1c 5.1 <5.7 % A1C B-Type Natriuretic Peptide 46.11 0-100 pg/mL Assessment Headache, left facial, neck, shoulder and brachium paresthesia with unremarkable MRI. The clinical presentation is not typical to TIA/stroke Reports seizure symptoms, consistent with grand mal seizure and simple partial seizure Plan/Recommendation Monitoring Supportive treatment Telemetry Clopidogrel 75 mg daily (home medication) Gabapentin 400 mg b.i.d. Lamictal 150 mg b.i.d. Resume her home medication on discharge More recommendation per clinical course Follow up with her doctors on discharge This medical document was created using an electronic medical record system with [employer] dictation system. Although this document has been carefully reviewed, there may still be some phonetic and typographical errors. These areas are purely typographical due to imperfections of the software programs, and do not reflect any compromise in the patient's medical care. Plan discussed with: Patient, Other SHAYNE LYONS MD Aug 09, 2024 11:00
--- NOTE | 2024-08-09 12:59 | ECG ---
[facility] Test Date: 2024-08-08 Test Time: 15:13:12 Pat Name: ANUM FERNANDEZ Department: ER Room: [address] [place] [address] A Gender: F Sql Manager: ER : 1980 Requested By: LANIE ESPOSITO Order Number: [id number] Reading MD: Measurements Intervals [place] Rate: 81 P: 74 NE: 173 QRS: 34 QRSD: 123 T: -50 QT: 389 QTc: 452 Interpretive Statements Sinus rhythm Consider right atrial enlargement Left bundle branch block Please click the below link to view image of tracing.
--- NOTE | 2024-08-09 19:51 | DVHDSRES ---
Discharge Summary Date of Admission Resident Creating Document: UMER DOMINIQUE RESIDENT Aug 08, 2024 at 21:55 Date of Discharge: Aug 09, 2024 Admitting Diagnosis Left-sided weakness Labs/Diagnostic Data: Laboratory Results Test 08/09/24 05:48 08/08/24 17:39 08/08/24 16:01 08/08/24 15:06 White Blood Count 8.6 10^3/uL (4.4-10.8) Red Blood Count 4.29 10^6/uL (4.0-5.20) Hemoglobin 13.6 g/dL (12.2-16.2) Hematocrit 41.0 % (36.0-46.0) Mean Corpuscular Volume 95.4 fL (80.0-100.0) Mean Corpuscular Hemoglobin 31.6 pg (28.0-32.0) Mean Corpuscular Hemoglobin Concent 33.1 g/dL (32.0-36.0) Red Cell Distribution Width 14.6 % (11.8-14.3) Platelet Count 440 10^3/uL (140-450) Mean Platelet Volume 7.4 fL (6.9-10.8) Neutrophils (%) (Auto) 55.5 % (37.0-80.0) Lymphocytes (%) (Auto) 32.7 % (10.0-50.0) Monocytes (%) (Auto) 7.6 % (0.0-12.0) Eosinophils (%) (Auto) 3.2 % (0.0-7.0) Basophils (%) (Auto) 1.0 % (0.0-2.0) Neutrophils # (Auto) 4.7 10 ^3/uL (1.6-8.6) Lymphocytes # (Auto) 2.8 10 ^3/uL (0.4-5.4) Monocytes # (Auto) 0.7 10 ^3/uL (0-1.3) Eosinophils # (Auto) 0.3 10 ^3/uL (0-0.8) Basophils # (Auto) 0.1 10 ^3/uL (0-0.2) Nucleated Red Blood Cells 0.1 % Sodium Level 140 mmol/L (136-145) Potassium Level 3.9 mmol/L (3.5-5.1) Chloride Level 105 mmol/L (98-107) Carbon Dioxide Level 23 mmol/L (20-31) Anion Gap 12 (5-15) Blood Urea Nitrogen < 5 mg/dL (9-23) Creatinine 0.90 mg/dL (0.550-1.02) Glomerular Filtration Rate Calc 80 mL/min (>90) BUN/Creatinine Ratio 5.6 (10.0-20.0) Serum Glucose 68 mg/dL (74-106) Calcium Level 9.8 mg/dL (8.7-10.4) Total Bilirubin 0.2 mg/dL (0.2-1.0) Aspartate Amino Transferase (AST) 20 U/L (13-40) Alanine Aminotransferase (ALT) 15 U/L (7-40) Alkaline Phosphatase 62 U/L (46-116) Total Protein 7.7 g/dL (5.7-8.2) Albumin 4.9 g/dL (3.2-4.8) Troponin I High Sensitivity < 3 ng/L (</=34) Triglycerides Level 119 mg/dL (< 150) Cholesterol Level 201 mg/dL (< 200) LDL Cholesterol 137 mg/dL (< 100) HDL Cholesterol 53 mg/dL (40-59) Thyroid Stimulating Hormone (TSH) 0.75 uIU/mL (0.55-4.78) Urine Color Light-yellow (Yellow) Urine Clarity Clear (Clear) Urine pH 7.0 (5.0-9.0) Urine Specific [place] 1.006 (1.001-1.035) Urine Protein Negative (Negative) Urine Ketones Negative (Negative) Urine Blood Negative /uL (Negative) Urine Nitrite Negative (Negative) Urine Bilirubin Negative (Negative) Urine Urobilinogen Normal mg/dL (Negative) Urine Leukocyte Esterase Negative /uL (Negative) Urine RBC <1 /hpf (0 - 4) Urine Microscopic WBC 1 /HPF (0-5) Urine Squamous Epithelial Cells Few /hpf (<5) Urine Bacteria None seen /hpf (None Seen) Urine Glucose Normal mg/dL (Normal) Urine Opiates Screen Neg (NEGATIVE) Urine Fentanyl Screen Neg (NEGATIVE) Urine Barbiturates Screen Neg (NEGATIVE) Urine Phencyclidine Screen Neg (NEGATIVE) Urine Amphetamines Screen Neg (NEGATIVE) Urine Benzodiazepines Screen Neg (NEGATIVE) Urine Cocaine Screen Neg (NEGATIVE) Urine Cannabinoids Screen Neg (NEGATIVE) POC Glucose 139 mg/dl (70-106) Test 2/25/25 15:02 Hemoglobin A1c 5.1 % A1C (<5.7) B-Type Natriuretic Peptide 46.11 pg/mL (0-100) Other Laboratory Tests 08/09/24 05:48 Brief Hx & Hospital Course: A 43-year-old female presents to the ED with a chief complaint of left-sided weakness and numbness that began today at approximately 1 PM. She initially experienced left-sided headache and facial numbness, which radiated to the left shoulder and arm with tingling sensations. She continues to experience left- sided numbness and a persistent headache. She denies chest pain, shortness of breath, blurry vision, nausea, vomiting, diarrhea, abdominal pain, fevers, chills, or seizure-like activity. This is the first time she has had these symptoms. Given an ABCD score of 4, she was started on dual antiplatelet therapy (DAPT) with aspirin and clopidogrel. MRI brain and neurology consultation were ordered for further evaluation. Hospital course: CT head showed no evidence of acute intracranial hemorrhage, extra-axial collection, mass effect, midline shift, herniation or hydrocephalus. Patchy periventricular and subcortical white matter hypodensities likely related to small-vessel ischemic disease, no CT findings of territorial ischemia. Neurology was taken on board, brain MRI showed no evidence of acute intracranial abnormality, no acute infarct. Slight excess CSF fluid in the optic nerve sheaths bilaterally with tortuosity of the optic nerves, may be seen with papilledema in the appropriate clinical setting. Partially empty sella. Carotid Doppler showed no hemodynamically significant stenosis noted in the right and left carotid system. Patient's pattern and distribution of paresthesias with unremarkable MRI is not typical to TIA/stroke. On the day of discharge, patient appeared well and had stable vital signs, full neurological exam was conducted for the patient which was largely unremarkable, patient denied any active ongoing headaches or numbness or paresthesias. Patient was discharged home and instructed to continue home medication clopidogrel and atorvastatin, patient was also instructed to follow up with her neurologist at [place] in 1-2 weeks. Her hospital course was uncomplicated. General Appearance: Cooperative. Well developed. Well nourished. NAD Head Exam: Normal inspection Neck Exam: Normal inspection. Non-tender. Normal alignment Pulmonary/Respiratory: Chest non-tender. Clear bilateral breath sounds, no crackles, no wheezing. Cardiovascular/Chest: Regular rate and rhythm. No murmurs. No JVD. Peripheral Pulses: 2+ Radial (R). 2+ Radial (L). 2+ Pedal (R). 2+ Pedal (L) Abdominal Exam: Normal bowel sounds. Soft. normal abdomen, no visible veins, Nontender. No hepatospenomegaly. No masses Ankle Exam: Negative ankle edema Lower extremities: Negative lower extremity edema Neuro/Mental Status: A&O x4. Coherent. Thoughts/Psych: Normal thought pattern. Appropriate mood and affect. Good judgement and insight Skin Exam: Normal inspection. Normal color. Warm. Dry Consults/Reason for consult Neurology: Ruled out stroke/TIA Condition at Discharge: Good Final Diagnosis/Problems List Ruled out stroke, unlikely to be TIA based on distribution of paresthesia Chronic small-vessel ischemic disease migraine with aura Dyslipidemia History of seizure Discharge Disposition: Home Discharge Instruct/Medications Diet: Cardiac 2g Na,low cholest Activity: No Restrictions, As Tolerated Follow Up/Referral: Please follow up with PCP in 1-2 weeks Medications: Continue home medication Discharge Statement: "Patient was advised to return to the ER or call 911 if any headaches, dizziness, shortness of breath, chest pain, abdominal pain, bleeding, fevers, or worsening of medical condition. Patient was counseled about treatment plan, medications, possible side effects, patientverbalized understanding. All questions were answered to the best of my ability. This discharge took greater then 30 minutes in planning, reviewing documentation, counseling the patient, and discussing with other team members." ASSESSMENT ASSESSMENT Assessment TIA unlikely migraine with aura JEAAN HUBBARD RESIDENT Aug 09, 2024 19:51
[2024-08-09] MEDS ORDERED: ATORVASTATIN 20 MG TAB PO SCH ×2 (22:00)
== END 2024-08-09 13:33 | disposition home or self-care (01) | DRG 103 ==
LOC: ER 14:37 → OVERFLOW 21:55 → UNDODEPER 08-09 05:49 → OVERFLOW 08-09 13:04
PROVIDERS: ADMIT Student in an Organized Health Care Education/Training Program; ATTEND Emergency Medicine
DX: G43.109 Migraine with aura, not intractable, without status migrainosus (principal); F41.9 Anxiety disorder, unspecified; D64.9 Anemia, unspecified; F17.200 Nicotine dependence, unspecified, uncomplicated; R20.2 Paresthesia of skin; E78.5 Hyperlipidemia, unspecified; R20.0 Anesthesia of skin; Z88.0 Allergy status to penicillin; Z79.899 Other long term (current) drug therapy; Z82.49 Family history of ischemic heart disease and other diseases of the circulatory system; Z79.02 Long term (current) use of antithrombotics/antiplatelets
CPT/HCPCS: 36415; 70450; 70551; 71045; 80048; 80053; 80061; 80307; 81001; 82962; 83036; 83880; 84443; 84484; 85025; 93005; 93886; G0378; J1885